=== PATIENT | male | born 1990 | race African-American/Black ===

== ENCOUNTER 2022-10-21 13:14 | Emergency (ER) | payer SELFPAY ==
[~2022-10-21] VITALS: Ht 172.7 cm; Wt 99.8 kg
[2022-10-21 13:31] VITALS: O2SAT 99
[2022-10-21] MEDS ORDERED: ALBUTEROL0.63 MG/3 NEB (13:35)
[2022-10-21] MEDS ORDERED: AMOXICILLI400 MG/5 M PO (13:37)
[2022-10-21] MEDS ORDERED: AMOXICILLIN500 MG PO (13:38)
[2022-10-21] MEDS ORDERED: LIDOCAINE 1% 10 ML MULTIDOSE VIAL IJ ONE (13:40)
[2022-10-21] MEDS ORDERED: CEFTRIAXONE 1 GM VIAL ONE (13:40)
[2022-10-21] MEDS ORDERED: DEXAMETHASONE SOD PHOS 10 MG/1 ML VIAL IV ONE (13:45)
[2022-10-21] MEDS ORDERED: CEFTRIAXONE 1 GM VIAL IM ONE (13:45)
== END 2022-10-21 14:26 | disposition home or self-care (01) ==
LOC: ER 13:19
DX: R05.9 Cough, unspecified (principal); J02.9 Acute pharyngitis, unspecified; J45.909 Unspecified asthma, uncomplicated
CPT/HCPCS: 99282; J0696; J1100

== ENCOUNTER 2022-11-29 17:42 | Emergency (ER) | payer SELFPAY ==
[~2022-11-29] VITALS: Ht 172.7 cm; Wt 99.8 kg
[~2022-11-29 17:42] MED LIST: ALBUTEROL0.63 MG/3 NEB; AMOXICILLI400 MG/5 M PO; AMOXICILLIN500 MG PO
[2022-11-29] MEDS ORDERED: ACETAMINOPHEN 325 MG TAB PO STA (18:21)
[2022-11-29 19:00] LABS: INFLUENZAE A&B ANTIGEN (RAPID) NEGATIVE (NEGATIVE); STREPTOCOCCUS GRP A ANTIGEN NEGATIVE (NEGATIVE)
[2022-11-29 20:41] VITALS: BP 150/91; PULSE 78; RESP 18; TEMP 98.8; O2SAT 98
[2022-11-29] MEDS ORDERED: PREDNISONE20 MG PO (20:41)
[2022-11-29] MEDS ORDERED: VENTOLIN HFA18 GM INH (20:41)
[2022-11-29] MEDS ORDERED: AZITHROMYCIN250 MG PO (20:41)
== END 2022-11-29 20:46 | disposition home or self-care (01) ==
LOC: ER 18:00
DX: J02.9 Acute pharyngitis, unspecified (principal); R05.9 Cough, unspecified; R06.02 Shortness of breath; R53.81 Other malaise; Z20.822 Contact with and (suspected) exposure to COVID-19
CPT/HCPCS: 83518; 87070; 87400; 99283; U0002